=== PATIENT | female | born 1960 | race Two or more races ===

== ENCOUNTER 2018-10-09 08:30 | Emergency (ER) | payer OTHER ==
[2018-10-09] MEDS ORDERED: NA CHLORIDE 0.9% 1,000 ML ONE (08:48)
[2018-10-09] MEDS ORDERED: KETOROLAC 30 MG/ML INJ ONE (08:48)
[2018-10-09] MEDS ORDERED: PROMETHAZINE 25 MG/ML VIAL ONE ×2 (08:48→09:45)
[2018-10-09 08:52] LABS: Absolute Lymphocytes (CBC) 1.6 K/uL (0.7-4.9); Absolute Monocytes 0.5 K/uL (0.1-1.3); Absolute Neutrophil 5.6 K/uL (1.8-8.0); Basophils % 0.6 % (0-1.3); Eosinophils % 1.3 % (0-4.4); Hematocrit 40.6 % (36.0-45.0); Lymphocytes % 20.8 % (15.3-44.8); MPV 9.7 fL (7.6-11.3); Monocytes % 6.1 % (3.3-12.3); RBC Red Blood Cell Count 4.66 M/uL (3.86-4.86)
[2018-10-09 09:03] LABS: Protime INR 0.93
[2018-10-09 09:15] LABS: ALT/SGPT 24 U/L (12-78); AST/SGOT 18 U/L (15-37); Albumin 3.8 g/dL (3.4-5.0); Alkaline Phosphatase 144 U/L (45-117); BUN Blood Urea Nitrogen 20 mg/dL (7-18); Bicarbonate 24 mmol/L (21-32); Bilirubin Direct 0.1 mg/dL (0-0.2); Bilirubin Total 0.5 mg/dL (0.2-1.0); Glucose Level 123 mg/dL (74-106); Magnesium 2.1 mg/dL (1.8-2.4); NT PRO-BNP 115 pg/mL (<125); Potassium 4.3 mmol/L (3.5-5.1); Sodium Level 143 mmol/L (136-145); Troponin (Emerg Dept Use Only) < 0.02 ng/mL (0.0-0.045)
--- NOTE | 2018-10-09 09:32 | RAD REPORT ---
EXAM DESCRIPTION: CT - Stone Protocol - 10/09/2018 9:06 am CLINICAL HISTORY: Flank pain. FLANK PAIN COMPARISON: CTSTONE PROTOCOL dated 02/02/2015 TECHNIQUE: Axial images were obtained without oral or IV contrast. Lack of contrast limits solid org an and vascular assessment. The [id number] spans the entirety of the system partially obscuring uppermost abdomen and lung bases. Coronal reformatted images were obtained and reviewed. All CT scans are performed using dose optimization technique as appropriate and may include automated exposure control or mA/KV adjustment according to patient size. FINDINGS: The lower lung cali are clear. Imaged portions of the liver and spleen show no suspicious findings on non-contrast imaging.4 cm cyst is seen in right hepatic lobe. The pancreas and adrenal glands are normal. No pathologic lymphadenop athy in the abdomen or pelvis. 4 mm calculus is present at the right UVJ resulting in mild right hydronephrosis. No bowel obstruction, free air, free fluid or abscess. Normal appendix noted. No significant bony abnormality. IMPRESSION: 4 mm stone right UVJ resulting in mild right hydronephrosis.
[2018-10-09] MEDS ORDERED: TAMSULOSIN 0.4 MG SR CAP ONE (10:06)
--- NOTE | 2018-10-09 10:07 | RAD REPORT ---
EXAM DESCRIPTION: RAD - Chest Single View - 10/09/2018 8:53 am CLINICAL HISTORY: right flank pain Chest pain. COMPARISON: No comparisons FINDINGS: Portable technique limits examination quality. The lungs are grossly clear. The heart is upper limit of normal in size. No displaced fractures. IMPRESSION: No acute intrathoracic process suspected.
--- NOTE | 2018-10-09 10:26 | EDPHYS ---
Physician Documentation [facility] Name: Keila Porter Age: 58 yrs Sex: Female : 1960 Arrival Date: 10/09/2018 Time: 08:29 Bed 6 Private MD: ED Physician Jignesh Rees HPI: 10/09 09:07 This 58 yrs old [place] Female presents to ER via EMS with complaints of Flank Pain, snw Nausea. 09:07 The patient complains of pain in the right mid back. Location: right abdomen. Onset: snw The symptoms/episode began/occurred suddenly, this morning. Modifying factors: The symptoms are alleviated by nothing. Associated signs and symptoms: Pertinent positives: nausea, vomiting. Severity of pain: At its worst the pain was moderate severe. The patient has experienced similar episodes in the past. The patient has not recently seen a physician, the patient's primary care provider is Dr. Dr. Natalie Avery. Historical: - Allergies: 08:42 No Known Allergies; sv - PMHx: 08:42 Kidney stones; sv - PSHx: 08:42 thyroid tumors removed; knee; shoulder; back; sv - Immunization history:: Adult Immunizations up to date. - Social history:: Smoking status: Patient/guardian denies using tobacco, Patient/guardian denies using alcohol. - Ebola Screening: : No symptoms or risks identified at this time. ROS: 09:07 Constitutional: Negative for fever, chills, and weight loss, Eyes: Negative for injury, snw pain, redness, and discharge, ENT: Negative for injury, pain, and discharge, Neck: Negative for injury, pain, and swelling, Cardiovascular: Negative for chest pain, palpitations, and edema, Respiratory: Negative for shortness of breath, cough, wheezing, and pleuritic chest pain, : Negative for injury, bleeding, discharge, and swelling, MS/Extremity: Negative for injury and deformity, Skin: Negative for injury, rash, and discoloration, Neuro: Negative for headache, weakness, numbness, tingling, and seizure. 09:07 Abdomen/GI: Positive for abdominal pain, nausea and vomiting. 09:07 Back: Positive for flank pain, on the right. Exam: 09:05 Constitutional: This is a well developed, well nourished patient who is awake, alert, snw and in no acute distress. Head/Face: Normocephalic, atraumatic. Eyes: Pupils equal round and reactive to light, extra-ocular motions intact. Lids and lashes normal. Conjunctiva and sclera are non-icteric and not injected. Cornea within normal limits. Periorbital areas with no swelling, redness, or edema. ENT: Nares patent. No nasal discharge, no septal abnormalities noted. Tympanic membranes are normal and external auditory canals are clear. Oropharynx with no redness, swelling, or masses, exudates, or evidence of obstruction, uvula midline. Mucous membranes moist. Neck: Trachea midline, no thyromegaly or masses palpated, and no cervical lymphadenopathy. Supple, full range of motion without nuchal rigidity, or vertebral point tenderness. No Meningismus. Chest/axilla: Normal chest wall appearance and motion. Nontender with no deformity. No lesions are appreciated. 09:05 Respiratory: Lungs have equal breath sounds bilaterally, clear to auscultation and percussion. No rales, rhonchi or wheezes noted. No increased work of breathing, no retractions or nasal flaring. Skin: Warm, dry with normal turgor. Normal color with no rashes, no lesions, and no evidence of cellulitis. MS/ Extremity: Pulses equal, no cyanosis. Neurovascular intact. Full, normal range of motion. Neuro: Awake and alert, GCS 15, oriented to person, place, time, and situation. Cranial nerves II-XII grossly intact. Motor strength 5/5 in all extremities. Sensory grossly intact. Cerebellar exam normal. Normal gait. Psych: Awake, alert, with orientation to person, place and time. Behavior, mood, and affect are within normal limits. 09:05 Cardiovascular: Rate: bradycardic, Rhythm: regular, Pulses: no pulse deficits are appreciated, Heart sounds: normal. 09:05 ECG was reviewed by the Attending Physician. 09:05 Abdomen/GI: Inspection: abdomen appears normal, Bowel sounds: normal, Palpation: mild abdominal tenderness, in the right upper quadrant and right lower quadrant. 09:05 Back: pain, that is moderate, of the right mid back, normal spinal alignment noted, CVA tenderness, that is mild, muscle spasm, is not present. Vital Signs: 08:27 BP 120 / 75; Pulse 53; Resp 16; Temp 96.9(A); Pulse Ox 100% on R/A; Weight 97.52 kg sv (R); Height 5 ft. 5 in. (165.10 cm); Pain 8/10; 09:24 BP 136 / 70; Pulse 44; Resp 18; Pulse Ox 100% ; sv 08:27 Body Mass Index 35.78 (97.52 kg, 165.10 cm) sv MDM: 08:34 Patient medically screened. snw 10:30 Data reviewed: vital signs, nurses notes, EMS record. Data interpreted: Cardiac snw monitor: rate is 42 beats/min, rhythm is normal sinus rhythm, Interpretation: bradycardia, Pulse oximetry: on room air is 100 %. Counseling: I had a detailed discussion with the patient and/or guardian regarding: the historical points, exam findings, and any diagnostic results supporting the discharge/admit diagnosis, the presence of at least one elevated blood pressure reading (>120/80) during this emergency department visit, lab results, radiology results, the need for outpatient follow up, to return to the emergency department if symptoms worsen or persist or if there are any questions or concerns that arise at home. Response to treatment: the patient's symptoms have markedly improved after treatment. Special discussion: I have referred the patient to see his PCP for further evaluation of high blood pressure. Based on the history and exam findings, there is no indication for further emergent testing or inpatient evaluation. I discussed with the patient/guardian the need to see the scrap burner for further evaluation of the symptoms. I discussed with the patient/guardian the need to see the primary care provider for further evaluation of the symptoms. I discussed with the patient/guardian the need to see the urologist for further evaluation of the symptoms. 10/09 08:32 Order name: Basic Metabolic Panel; Complete Time: 09:25 snw 10/09 08:32 Order name: CBC with Diff; Complete Time: 09:04 snw 10/09 08:32 Order name: LFT's; Complete Time: 09:25 snw 10/09 08:32 Order name: Magnesium; Complete Time: 09:25 snw 10/09 08:32 Order name: NT PRO-BNP; Complete Time: 09:25 snw 10/09 08:32 Order name: PT-INR; Complete Time: 09:25 snw 10/09 08:32 Order name: Troponin (emerg Dept Use Only); Complete Time: 09:25 snw 10/09 08:32 Order name: XRAY Chest (1 view); Complete Time: 10:09 snw 10/09 08:33 Order name: Stone Protocol CT; Complete Time: 09:37 snw 10/09 08:49 Order name: Urine Culture snw 10/09 08:49 Order name: Urine Microscopic Only snw 10/09 10:12 Order name: Urine Dipstick--Ancillary (enter results); Complete Time: 10:41 bd 10/09 08:32 Order name: EKG; Complete Time: 08:33 snw 10/09 08:32 Order name: Cardiac monitoring; Complete Time: 10:51 snw 10/09 08:32 Order name: EKG - Nurse/Tech; Complete Time: 08:56 snw 10/09 08:32 Order name: IV Saline Lock; Complete Time: 08:39 snw 10/09 08:32 Order name: Labs collected and sent; Complete Time: 08:39 snw 10/09 08:32 Order name: O2 Per Protocol; Complete Time: 08:39 snw 10/09 08:32 Order name: O2 Sat Monitoring; Complete Time: 08:39 snw 10/09 08:49 Order name: Urine Dipstick-Ancillary (obtain specimen); Complete Time: 10:37 snw EC:05 Rate is 42 beats/min. Rhythm is regular. QRS [place] is Normal. ID interval is normal. QRS snw interval is normal. QT interval is normal. No Q waves. T waves are Normal. No ST changes noted. Clinical impression: Sinus bradycardia. Reviewed by me. Administered Medications: 08:35 Drug: NS 0.9% 1000 ml Route: IV; Rate: 1 bolus; Site: right antecubital; sv 11:11 Follow up: Response: No adverse reaction; IV Status: Order to discontinue infusion; IV sv Intake: 800ml 08:35 Drug: TORadol 30 mg Route: IVP; Site: right antecubital; sv 09:00 Follow up: Response: No adverse reaction sv 08:37 Drug: Phenergan 6.25 mg Route: IVP; Site: right antecubital; sv 09:00 Follow up: Response: No adverse reaction; Nausea is decreased sv 09:35 Drug: Phenergan 6.25 mg Route: IVP; Site: right antecubital; sv 09:54 Follow up: Response: No adverse reaction; Marked relief of symptoms; Nausea is decreasedsv 09:53 Drug: Flomax 0.4 mg Route: PO; sv 10:23 Follow up: Response: No adverse reaction sv 10:35 Drug: Rocephin 1 grams Route: IV; Rate: calculated rate; Site: right antecubital; sv 10:38 Follow up: Response: No adverse reaction; IV Status: Completed infusion; IV Intake: 10mlsv 10:38 Drug: fentaNYL (PF) 50 mcg Route: IM; Site: right deltoid; sv 11:03 Follow up: Response: No adverse reaction; No change in condition sv Disposition: 15:54 Co-signature as Attending Physician, Jignesh Rees MD. rn Disposition: 10/09/18 10:25 Discharged to Home. Impression: Hydronephrosis with renal and ureteral calculous obstruction, Urinary tract infection, site not specified, Volume depletion, Bradycardia, unspecified. - Condition is Stable. - Discharge Instructions: Bradycardia, Adult, Kidney Stones, Urinary Tract Infection, Adult, Urinary Tract Infection, Adult, [id number], Hydronephrosis, Dietary Guidelines to Help Prevent Kidney Stones, Rehydration, Adult. - Prescriptions for Augmentin 875- 125 mg Oral Tablet - take 1 tablet by ORAL route every 12 hours for 10 days; 20 tablet. Tylenol- Codeine #3 300-30 mg Oral Tablet - take 2 tablet by ORAL route every 6 hours As needed; 30 tablet. Flomax 0.4 mg Oral Capsule, Sust. Release 24 hr - take 1 capsule by ORAL route once daily 1/2 hour following the same meal each day; 30 capsule. Diclofenac Sodium 75 mg Oral Tablet Sustained Release - take 1 tablet by ORAL route 2 times per day; 30 tablet. promethazine 25 mg Oral Tablet - take 1 tablet by ORAL route every 6 hours As needed; 20 tablet. - Work release form, Medication Reconciliation Form, Thank You Letter, Antibiotic Education, Prescription Opioid Use form. - Follow up: Private Physician; When: 2 - 3 days; Reason: Recheck today's complaints, Continuance of care, Re-evaluation by your physician. Follow up: Emergency Department; When: As needed; Reason: Worsening of condition. Signatures: Dispatcher [email or web address] EDDE Loan Sim, RN RN sv Yolanda Hicks, HOME CARE ASSISTANT-C HOME CARE ASSISTANT-Csnw Jignesh Rees MD MD rn military: (The following items were deleted from the chart) 10:25 10:10/09/2018 10:25 Discharged to Home. Impression: Hydronephrosis with renal and snw ureteral calculous obstruction; Urinary tract infection, site not specified; Volume depletion. Condition is Stable. Forms are Medication Reconciliation Form, Thank You Letter, Antibiotic Education, Prescription Opioid Use. Follow up: Private Physician; When: 2 - 3 days; Reason: Recheck today's complaints, Continuance of care, Re-evaluation by your physician. Follow up: Emergency Department; When: As needed; Reason: Worsening of condition. snw 10:50 10:42 Misc. Order ordered. sn iw 11:11 10:10/09/2018 10:25 Discharged to Home. Impression: Hydronephrosis with renal and sv ureteral calculous obstruction; Urinary tract infection, site not specified; Volume depletion; Bradycardia, unspecified. Condition is Stable. Forms are Medication Reconciliation Form, Thank You Letter, Antibiotic Education, Prescription Opioid Use. Follow up: Private Physician; When: 2 - 3 days; Reason: Recheck today's complaints, Continuance of care, Re-evaluation by your physician. Follow up: Emergency Department; When: As needed; Reason: Worsening of condition. snw
--- NOTE | 2018-10-09 10:26 | ER ---
Nurse's Notes [facility] Name: Keila Porter Age: 58 yrs Sex: Female : 1960 Arrival Date: 10/09/2018 Time: 08:29 Bed 6 Private MD: Diagnosis: Hydronephrosis with renal and ureteral calculous obstruction;Urinary tract infection, site not specified;Volume depletion;Bradycardia, unspecified Presentation: 10/09 08:24 Presenting complaint: EMS states: right flank pain, n/v started 0300 today. BP 126/70 sv HR-48. Transition of care: patient was not received from another setting of care. Onset of symptoms was October 09, 2018 at 03:00. Risk Assessment: Do you want to hurt yourself or someone else? Patient reports no desire to harm self or others. Initial Sepsis Screen: Does the patient meet any 2 criteria? No. Patient's initial sepsis screen is negative. Does the patient have a suspected source of infection? No. Patient's initial sepsis screen is negative. Care prior to arrival: Medication(s) given: zofran 4 mg IM. 08:24 Method Of Arrival: EMS: [facility] sv 08:30 Acuity: JOEL 2 sv Triage Assessment: 08:24 General: Appears distressed, uncomfortable, obese, well developed, Behavior is sv cooperative, appropriate for age. Pain: Complains of pain in right low back Pain currently is 8 out of 10 on a pain scale. Quality of pain is described as dull, Pain began 0300 today Is continuous. Neuro: Level of Consciousness is awake, alert, obeys commands, Oriented to person, place, time, situation, Moves all extremities. Full function Gait is steady. Respiratory: Respiratory effort is even, unlabored, Respiratory pattern is regular, symmetrical. GI: Abdomen is obese, Reports nausea, vomiting. : Reports pain in right flank(s). Derm: Skin is pink, warm \T\ dry. Historical: - Allergies: 08:42 No Known Allergies; sv - PMHx: 08:42 Kidney stones; sv - PSHx: 08:42 thyroid tumors removed; knee; shoulder; back; sv - Immunization history:: Adult Immunizations up to date. - Social history:: Smoking status: Patient/guardian denies using tobacco, Patient/guardian denies using alcohol. - Ebola Screening: : No symptoms or risks identified at this time. Screenin:43 Abuse screen: Denies threats or abuse. Denies injuries from another. Nutritional sv screening: No deficits noted. Tuberculosis screening: No symptoms or risk factors identified. Fall Risk None identified. Assessment: 09:24 Reassessment: Patient appears in no apparent distress at this time. Patient and/or sv family updated on plan of care and expected duration. Pain level reassessed. Patient is alert, oriented x 3, equal unlabored respirations, skin warm/dry/pink. Patient states feeling better. Patient states symptoms have improved. GI: Patient currently denies nausea, vomiting. 09:30 Reassessment: Patient appears in no apparent distress at this time. Patient and/or sv family updated on plan of care and expected duration. Pain level reassessed. Patient is alert, oriented x 3, equal unlabored respirations, skin warm/dry/pink. GI: Pt is actively vomiting bile, Patient currently denies nausea, vomiting. 10:45 Reassessment: Pt waiting for her ride home. sv 11:04 Reassessment: Patient appears in no apparent distress at this time. Patient and/or sv family updated on plan of care and expected duration. Pain level reassessed. Patient is alert, oriented x 3, equal unlabored respirations, skin warm/dry/pink. Patient states feeling better. Patient states symptoms have improved. Vital Signs: 08:27 BP 120 / 75; Pulse 53; Resp 16; Temp 96.9(A); Pulse Ox 100% on R/A; Weight 97.52 kg sv (R); Height 5 ft. 5 in. (165.10 cm); Pain 8/10; 09:24 BP 136 / 70; Pulse 44; Resp 18; Pulse Ox 100% ; sv 08:27 Body Mass Index 35.78 (97.52 kg, 165.10 cm) sv ED Course: 08:29 Patient arrived in ED. sv 08:29 Loan Sim RN is Primary Nurse. sv 08:30 Triage completed. sv 08:30 Yolanda Hicks FNP-C is [facility]. snw 08:30 Jignesh Rees MD is Attending Physician. snw 08:35 Initial lab(s) drawn, by ED staff, sent to lab. Inserted saline lock: 22 gauge in right sv antecubital area, using aseptic technique. ,using aseptic technique. diffusics, started by [facility] Blood collected. 08:42 Arm band placed on. sv 08:43 Patient has correct armband on for positive identification. Placed in gown. Bed in low sv position. Call light in reach. school lunch monitor on. Pulse ox on. NIBP on. Door closed. Head of bed elevated. 08:48 Awaiting lab results, Awaiting CT Scan. sv 08:51 X-ray completed. Portable x-ray completed in exam room. Patient tolerated procedure jb2 well. 08:52 XRAY Chest (1 view) In Process Unspecified. EDMS 09:02 EKG done, by commercial hvac technician. reviewed by Yolanda CHANDLER. at1 09:[address] In Process Unspecified. EDMS 09:15 CT completed. Patient tolerated procedure well. Patient moved to CT via wheelchair. [email or web address] Patient moved back from CT. 09:24 Awaiting lab results, Awaiting radiology results. Awaiting re-evaluation by ER provider.sv 10:38 Urine collected: clean catch specimen, clear. ms 11:05 No provider procedures requiring assistance completed. IV discontinued, intact, sv bleeding controlled, No redness/swelling at site. Pressure dressing applied. Administered Medications: 08:35 Drug: NS 0.9% 1000 ml Route: IV; Rate: 1 bolus; Site: right antecubital; sv 11:11 Follow up: Response: No adverse reaction; IV Status: Order to discontinue infusion; IV sv Intake: 800ml 08:35 Drug: TORadol 30 mg Route: IVP; Site: right antecubital; sv 09:00 Follow up: Response: No adverse reaction sv 08:37 Drug: Phenergan 6.25 mg Route: IVP; Site: right antecubital; sv 09:00 Follow up: Response: No adverse reaction; Nausea is decreased sv 09:35 Drug: Phenergan 6.25 mg Route: IVP; Site: right antecubital; sv 09:54 Follow up: Response: No adverse reaction; Marked relief of symptoms; Nausea is decreasedsv 09:53 Drug: Flomax 0.4 mg Route: PO; sv 10:23 Follow up: Response: No adverse reaction sv 10:35 Drug: Rocephin 1 grams Route: IV; Rate: calculated rate; Site: right antecubital; sv 10:38 Follow up: Response: No adverse reaction; IV Status: Completed infusion; IV Intake: 10mlsv 10:38 Drug: fentaNYL (PF) 50 mcg Route: IM; Site: right deltoid; sv 11:03 Follow up: Response: No adverse reaction; No change in condition sv Intake: 10:38 IV: 10ml; Total: 10ml. sv 11:11 IV: 800ml; Total: 810ml. sv Outcome: 10:25 Discharge ordered by MD. miles 11:05 Discharged to home ambulatory, with friend. sv 11:05 Condition: stable 11:05 Condition: improved 11:05 Discharge instructions given to patient, Instructed on discharge instructions, follow up and referral plans. no drinking with medication, no driving heavy equipment, medication usage, increase fluid intake Demonstrated understanding of instructions, follow-up care, medications, Prescriptions given X x5 11:11 Patient left the ED. sv Signatures: Dispatcher [employer] Loan Auguste RN RN Yolanda Mena, FILER HELPER-C FILER HELPER-Chano Galdamez Maria ms Gonzales, Amanda, technology coach EKG Tat1 Eden [email or web address]
[2018-10-09 10:39] LABS: Urine Blood 3+ (NEG); Urine Glucose NEGATIVE (NEG); Urine Protein 1+ (NEG); Urine Specific Gravity >1.030 (1.005-1.030)
[2018-10-09] MEDS ORDERED: CEFTRIAXONE/SWI 1gm 1 GM/10 ML SYR ONE (10:45)
[2018-10-09] MEDS ORDERED: FENTANYL CITR 100 MCG/2 ML ONE (10:45)
--- NOTE | 2018-10-09 11:23 | EKG ---
Test Date: 2018-10-09 Test Time: 09:00:32 Ticket Seller: NAKUL MEASUREMENT RESULTS: Intervals: Rate: 42 MS: 148 QRSD: 80 QT: 468 QTc: 390 [place]: P: 21 MS: 148 QRS: 37 T: 34 INTERPRETIVE STATEMENTS: Marked sinus bradycardia Abnormal ECG No previous ECG available for comparison Electronically Signed On 10-09-18 11:22:37 CDT by Shmuel Newton
[2018-10-09 12:52] LABS: Urine Amorphous Sediment 3+ /HPF (NONE SEEN); Urine Bacteria 20-50 /HPF (<20); Urine RBC 20-50 /HPF (NONE SEEN)
[2018-10-09 12:53] LABS: Urine Culture Reflex Order NOT NEEDED
== END 2018-10-09 11:11 | disposition home or self-care (01) ==
LOC: ER 08:30
DX: N13.2 Hydronephrosis with renal and ureteral calculous obstruction (principal); N39.0 Urinary tract infection, site not specified; E86.9 Volume depletion, unspecified; R00.1 Bradycardia, unspecified; Z87.442 Personal history of urinary calculi
CPT/HCPCS: 36415; 71045; 74176; 76377; 80048; 80076; 81003; 81015; 83735; 83880; 84484; 85025; 85610; 87086; 87088; 93005; 96361; 96372; 96374; 96375; 99285; J0696; J2550; J3010; J7030